=== PATIENT | male | born 1960 | race Caucasian/White ===

== ENCOUNTER → 2017-07-13 | Outpatient (CLI) | payer OTHER ==
[~2017-07-13] MED LIST: LEVO25TA4 PO; MULTIVITAMIN; PREVA; [UNRECOGNIZED DRUG - CODE]
--- NOTE | 2017-07-13 19:53 | MG ---
cc: LD NARAYAN M.D. Lab No: Date: 07/13/2017 Age: Sex: M Race: REQUESTING PHYSICIAN Dr. Qiu INTRODUCTION EEG was obtained on this 56-year-old patient being evaluated for migraines, visual loss and possible seizures. DESCRIPTION The patient is described as awake during the study. There are low amplitude beta rhythms diffusely. There is artifact very frequently. Photic stimulation showed no change. There are some occasional intermixed low amplitude alpha rhythms. There is eye movement artifact. Hyperventilation was unremarkable. There is probable occasional drowsiness and some theta activity is present diffusely. INTERPRETATION Normal awake and drowsy EEG. Specifically no epileptiform features present. MD JAXON Willis/KK /7:08 PM /7:48 PM
== END ==
LOC: HEEG 07:31
PROVIDERS: ATTEND Psychiatry & Neurology Vascular Neurology
DX: G43.109 Migraine with aura, not intractable, without status migrainosus (principal); G44.40 Drug-induced headache, not elsewhere classified, not intractable
CPT/HCPCS: 95819